=== PATIENT | female | born 1940 | race Caucasian/White ===

== ENCOUNTER 2016-10-15 10:20 | Inpatient (IN) | payer OTHER ==
[~2016-10-15] VITALS: Ht 157.5 cm; Wt 70.3 kg
--- NOTE | ~2016-10-15 | HC ---
[facility] [place] [address] CONSULTATION Name: ZENAIDA GORDON Room #: 402-P [facility] IN M.R.#: [id number] Admission: 10/15/16 Attend Phys: Yvette Santiago Discharge: 10/19/16 Date of : 38 Report #: [id number] THIS REPORT FOR: //name// CC: Jaskaran Santiago DATE OF SERVICE: 10/16/2016 IDENTIFICATION: Psychiatric consultation is requested for depression. HISTORY OF PRESENT ILLNESS: The patient is a 75-year-old retired, female with recent onset of depression. She has no past history of suicide attempts or psychiatric hospitalizations. She has no history of noah, psychosis or substance abuse. The patient has endorsed significant depression. She states that she "doesn't feel in control". She has a movement disorder and a significant component of pain. She had been prescribed Prozac for the last year, without any benefit. Her physician today has stopped the Prozac and recommended Cymbalta and clonazepam. The patient does endorse suicidal ideation and states that if she were to hurt herself, she would overdose on pills "because there would be no mess to clean up". She feels extremely hopeless. The patient's children and are interviewed in the room with the patient as well. They agree that the patient's depression is quite severe. Children are in agreement with recommendations for psychiatric hospitalization, but is against this and the patient herself is entirely against this as well. She does say that she will not actually harm herself and that she will not act on the thoughts. says that he will provide 24-hour supervision. ALLERGIES: LEVODOPA and FORMALDEHYDE. MEDICATIONS: Reviewed and include Cymbalta 30 mg daily, Klonopin 0.5 mg twice daily and Ambien 5 mg at bedtime. PAST MEDICAL HISTORY: Restless leg syndrome, periodic limb movement disorder, fibromyalgia, hypertension and hyperlipidemia. FAMILY HISTORY: Mother with Alzheimer's. SOCIAL HISTORY: The patient and recently sold their home in [place]. They are living in a motor home in their daughter's yard. She denies any tobacco, alcohol or drug use. [facility] [address] [place] [address] CONSULTATION Name: ZENAIDA GORDNO Room #: 402-P [facility] IN M.R.#: [id number] Admission: 10/15/16 Attend Phys: Yvette Santiago Discharge: 10/19/16 Date of : 38 Report #: [id number] MENTAL STATUS EXAMINATION: Restless, hugging her throughout the interview. Did not make any eye contact with me. Speech regular rate and rhythm. Thought process tangential, circumstantial. No hallucinations or delusions. She endorses suicidal ideation with possible plan to overdose, but she denies any intent. Affect dysthymic, tearful, highly anxious. Alert and oriented times 3. Insight and judgment poor. DIAGNOSIS: Major depressive disorder, recurrent, severe without psychosis. PLAN: The patient's depression is severe and I am concerned about her suicidal ideation. I strongly recommend inpatient psychiatric hospitalization. However, family is unwilling to pursue involuntary treatment and the patient is unwilling to be voluntary. stated that he feels safe with her going home and he will provide 24-hour supervision. Given that family are all in agreement that involuntary hospitalization should not be pursued, we will simply continue to encourage the patient to consider voluntary treatment. I do agree with the Reji Vázquez and Nilda. At the very least, the patient will need outpatient psychiatric followup and we will ask case management for a referral. Thank you for this consultation. Please contact me with any urgent questions or concerns. <ELECTRONICALLY SIGNED> By: Marla Hernandez MD 10/20/16 [id number] Marla Hernandez MD /nt
[2016-10-15 10:22] VITALS: BP 175/73
[2016-10-15 10:52] LABS: HEMATOCRIT 47.2 % (37.0-47.0); HEMOGLOBIN 16.1 gm/dL (12.0-15.0); MCHC 34.1 g/dL (28.0-37.0); MCV 93.9 fL (80.0-100.0); PLATELET COUNT 396 thou/uL (150-400); RBC 5.02 mil/uL (4.20-5.00); RDW 18.2 % (10.5-14.5); WBC 18.3 thou/uL (4.0-11.0)
[2016-10-15 10:54] LABS: MANUAL DIFF YES
[2016-10-15] MEDS ORDERED: HYDROCODONE-APA1 TA1 PO (10:54)
[2016-10-15] MEDS ORDERED: LIORESAL 10 MG10 MG PO (10:54)
[2016-10-15] MEDS ORDERED: LASIX 40 MG TAB40 M2 PO (10:55)
[2016-10-15] MEDS ORDERED: LEVOTHYROXIN0.088 MG PO (10:55)
[2016-10-15] MEDS ORDERED: PROZAC20 MG PO (10:55)
[2016-10-15 11:02] LABS: ALBUMIN 4.1 g/dL (3.4-5.0); ALKALINE PHOSPHATASE 110 U/L (46-116); ANION GAP 10 mmol/L (7-16); BUN 14 mg/dL (7-18); CHLORIDE 97 mmol/L (98-107); CO2 30 mmol/L (21-32); DIRECT BILIRUBIN < 0.1 mg/dL (<0.1-0.3); GLUCOSE 98 mg/dL (70-99); POTASSIUM 3.8 mmol/L (3.5-5.1); SGOT 36 U/L (15-37); SGPT 37 U/L (30-65); SODIUM 137 mmol/L (136-145); TOTAL BILIRUBIN 0.5 mg/dL (<0.1-1.0); TOTAL PROTEIN 7.6 g/dL (6.4-8.2)
[2016-10-15 11:10] LABS: TOTAL CELL COUNT 100
[2016-10-15 11:11] LABS: ANISOCYTOSIS 2+
[2016-10-15 11:47] LABS: URINE BILIRUBIN NEGATIVE (Negative); URINE BLOOD 3+ (Negative); URINE COLOR YELLOW; URINE GLUCOSE-RANDOM* NEGATIVE (Negative); URINE KETONES NEGATIVE (Negative); URINE NITRITE NEGATIVE (Negative); URINE PROTEIN (DIPSTICK) NEGATIVE (Negative); URINE SPECIFIC GRAVITY <= 1.005 (1.003-1.035); URINE UROBILINOGEN 0.2 E.U./dl (0.2-1.0)
[2016-10-15 11:57] LABS: SQUAMOUS 0-3 Few /LPF (0-3)
[2016-10-15 11:59] LABS: BACTERIA 1-9 Few /HPF (None Seen); CASTS None Seen /LPF (None Seen); CRYSTALS None Seen /LPF (None Seen); URINE RBC 3-10 Few /HPF (0-2); URINE WBC 0-5 Rare /HPF (0-5)
[2016-10-15 13:39] LABS: TSH 8.083 uIU/mL (0.358-3.740)
[2016-10-15 13:46] LABS: CREATININE 0.9 mg/dL (0.6-1.3); PHOSPHORUS 3.6 mg/dL (2.5-4.9)
[2016-10-15 14:02] VITALS: BP 110/91
[2016-10-15] MEDS ORDERED: VITAMIN D1000 UNI1 PO (14:42)
[2016-10-15 19:20] VITALS: BP 153/57
[2016-10-16 04:06] VITALS: BP 144/65
[2016-10-16 04:40] LABS: HEMATOCRIT 43.8 % (37.0-47.0); HEMOGLOBIN 14.9 gm/dL (12.0-15.0); MCH 32.2 pg (26.0-34.0); MCV 94.7 fL (80.0-100.0); RBC 4.63 mil/uL (4.20-5.00); RDW 18.3 % (10.5-14.5); WBC 14.3 thou/uL (4.0-11.0)
[2016-10-16 04:47] LABS: CALCIUM 8.6 mg/dL (8.5-10.1); CREATININE 0.9 mg/dL (0.6-1.3)
[2016-10-16 07:44] VITALS: BP 143/57
[2016-10-16 16:18] VITALS: BP 152/77
[2016-10-16 19:33] VITALS: BP 176/74
[2016-10-17 07:27] VITALS: BP 166/65
[2016-10-17 15:55] VITALS: BP 167/71
[2016-10-18 08:11] VITALS: BP 170/77
[2016-10-18 14:59] VITALS: BP 146/75
[2016-10-18 20:00] VITALS: BP 166/83
[2016-10-19 04:00] VITALS: BP 157/82
[2016-10-19 08:32] VITALS: BP 139/61
[2016-10-19] MEDS ORDERED: CLONAZEPAM 0.50.5 M1 PO (10:41)
[2016-10-19] MEDS ORDERED: CYMBALTA30 MG PO (10:41)
[2016-10-19] MEDS ORDERED: MIRALAX17 GM PO (10:44)
[2016-10-19] MEDS ORDERED: LORTAB 7.5-3251 EACH PO (10:44)
[2016-10-19 11:54] VITALS: BP 139/61
== END 2016-10-19 14:15 | disposition home or self-care (01) | DRG 552 ==
LOC: ER 10:20 → EROBS 12:07 → 5S 12:07 → 4N 10-18 13:24
PROVIDERS: Emergency Medicine; Hospitalist
DX: M48.00 Spinal stenosis, site unspecified (principal); G25.9 Extrapyramidal and movement disorder, unspecified; I10 Essential (primary) hypertension; E78.00 Pure hypercholesterolemia, unspecified; D72.829 Elevated white blood cell count, unspecified; G25.81 Restless legs syndrome; E78.5 Hyperlipidemia, unspecified; F32.9 Major depressive disorder, single episode, unspecified; G25.5 Other chorea; M79.7 Fibromyalgia; Z90.49 Acquired absence of other specified parts of digestive tract; Z88.8 Allergy status to other drugs, medicaments and biological substances
CPT/HCPCS: 10785; 10790